=== PATIENT | female | born 1980 | race Caucasian/White ===

== ENCOUNTER 2018-03-23 12:54 | Emergency (ER) | payer MEDICAID ==
[2018-03-23 13:36] VITALS: BP 156/91
--- NOTE | 2018-03-23 13:58 | EDM.PDOC ---
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 Patient states this has been ongoing since December of this year. It had stopped until she had a uterine biopsy March 15. She has been bleeding since then. No other complaints today. She is not lightheaded or dizzy, no palpitations, normal blood pressure. She was told to come have her hemoglobin checked by her truck jumper. Duration: Constant, Intermittent Quality: Reports: Same as Previous Episode Improves with: Reports: None Worsens with: Reports: None Associated Symptoms: Reports: No Other Symptoms - Related Data Allergies Allergy/AdvReac Type Severity Reaction Status Date / Time tramadol Allergy Vomiting Verified 03/23/18 13:14 dust Allergy Facial Uncoded 03/23/18 13:14 Swelling pollen Allergy Facial Uncoded 03/23/18 13:14 Swelling Home Meds: Home Meds Ethinyl Estradiol/Norgestrel [Cryselle 28-Day] 1 tab PO DAILY 03/23/18 [History] Past Medical History - Past Health History Medical/Surgical History: Denies Medical/Surgical History Other Immunologic History: chronic hives - Past Surgical History Other HEENT Surgeries/Procedures: dental surgery 2 yrs ago. Had back teeth and wisdom teeth removed ED ROS GENERAL - Review of Systems Review Of Systems: See Below Constitutional: Reports: No Symptoms HEENT: Reports: No Symptoms Respiratory: Reports: No Symptoms Cardiovascular: Reports: No Symptoms Endocrine: Reports: No Symptoms GI/Abdominal: Reports: No Symptoms : Reports: Other (heavy menses) Musculoskeletal: Reports: No Symptoms Skin: Reports: No Symptoms Neurological: Reports: No Symptoms Psychiatric: Reports: No Symptoms Hematologic/Lymphatic: Reports: No Symptoms Immunologic: Reports: No Symptoms ED EXAM, GENERAL - Physical Exam Exam: See Below Exam Limited By: No Limitations General Appearance: Alert, WD/WN, No Apparent Distress Head: Atraumatic, Normocephalic Neck: Normal Inspection, Supple, Non-Tender, Full Range of Motion Respiratory/Chest: No Respiratory Distress, Lungs Clear, Normal Breath Sounds, No Accessory Muscle Use, Chest Non-Tender Cardiovascular: Normal Peripheral Pulses, Regular Rate, Rhythm, No Edema, No Gallop, No JVD, No Murmur, No Rub GI/Abdominal: Normal Bowel Sounds, Soft, Non-Tender, No Organomegaly, No Distention, No Abnormal Bruit, No Mass (Female) Exam: Normal External Exam, Normal Speculum Exam, Normal Bimanual Exam, Vaginal Bleeding, Other (Anne AWRD present in room). No: Adnexal Mass, Adnexal Tenderness, Cervical Discharge, Cervical Lesions, Uterine Tenderness, Vaginal Tears Extremities: Normal Inspection, Normal Range of Motion, Non-Tender, Normal Capillary Refill, No Pedal Edema Neurological: Alert, Oriented, CN II-XII Intact, Normal Cognition, Normal Gait, Normal Reflexes, No Motor/Sensory Deficits Psychiatric: Normal Affect, Normal Mood Skin Exam: Warm, Dry, Intact, Normal Color, No Rash Course - Vital Signs Last Recorded V/S: Last Vital Signs Temp 36.3 C 03/23/18 13:05 Pulse 99 03/23/18 13:05 Resp 16 03/23/18 13:05 BP 156/91 H 03/23/18 13:05 Pulse Ox 98 03/23/18 13:05 - Orders/Labs/Meds Orders: Active Orders 24 hr Category Date Time Status CULTURE URINE [RM] Stat Lab 03/23/18 13:17 Ordered UA W/MICROSCOPIC [URIN] Stat Lab 03/23/18 13:17 Ordered Labs: Laboratory Tests 03/23/18 03/23/18 03/23/18 Range/Units 13:17 13:20 13:20 WBC 7.3 (4.0-10.0) x10^3/uL RBC 4.10 (4.00-5.50) x10^6/uL Hgb 13.0 (12.0-16.0) g/dL Hct 37.9 (33.0-47.0) % MCV 92.4 (78.0-93.0) fL MCH 31.7 (26.0-32.0) pg MCHC 34.3 (32.0-36.0) g/dL RDW Coeff of Gill 12.3 (10.0-15.0) % Plt Count 300 (130-400) x10^3/uL Neut % (Auto) 62.3 (50.0-80.0) % Lymph % (Auto) 31.6 (25.0-50.0) % [place] % (Auto) 4.1 (2.0-11.0) % Eos % (Auto) 1.7 (0.0-4.0) % Baso % (Auto) 0.3 (0.2-1.2) % PT 9.7 (9.6-11.4) SEC INR 0.9 L (2.0-3.5) Urine Color Dark yellow H (YELLOW) Urine Appearance Cloudy H (CLEAR) Urine pH 6.0 (5.0-8.0) Ur Specific [place] 1.010 Urine Protein Negative (NEGATIVE) mg/dL Urine Glucose (UA) Negative (NEGATIVE) mg/dL Urine Ketones Negative (NEGATIVE) mg/dL Urine Occult Blood Moderate H (NEGATIVE) Urine Nitrite Negative (NEGATIVE) Urine Bilirubin Negative (NEGATIVE) Urine Urobilinogen 0.2 (0.2) EU/dL Ur Leukocyte Esterase Trace H (NEGATIVE) Departure - Departure Time of Disposition: 13:58 Disposition: Home, Self-Care 01 Condition: Good Clinical Impression: Excessive vaginal bleeding - Discharge Information *PRESCRIPTION DRUG MONITORING PROGRAM REVIEWED*: No *COPY OF PRESCRIPTION DRUG MONITORING REPORT IN PATIENT PAVITHRA: No Instructions: Abnormal Uterine Bleeding, [id number] Additional Instructions: Please call your truck jumper to be sure she is alright with the provera prescription. Stay well hydrated. If you develop any dizziness or lightheadedness, please call the emergency room. If you develop any shortness of breath or pain in your lower legs or swelling to the lower legs please come in to the emergency room for evaluation. A blood clot in your leg or lungs is a possible complication of using this medication. Please call if you have any questions or complaints. - Problem List & Annotations (1) Excessive vaginal bleeding SNOMED Code(s): 962301005 Code(s): N92.0 - EXCESSIVE AND FREQUENT MENSTRUATION WITH REGULAR CYCLE Status: Acute Priority: Medium Current Visit: Yes - Problem List Review Problem List Initiated/Reviewed/Updated: Yes - My Orders Last 24 Hours: My Active Orders 03/23/18 13:17 CULTURE URINE [RM] Stat UA W/MICROSCOPIC [URIN] Stat - Assessment/Plan Last 24 Hours: My Active Orders 03/23/18 13:17 CULTURE URINE [RM] Stat UA W/MICROSCOPIC [URIN] Stat Assessment:: excessive vaginal bleeding Plan: Please call your truck jumper to be sure she is alright with the provera prescription. Stay well hydrated. If you develop any dizziness or lightheadedness, please call the emergency room. If you develop any shortness of breath or pain in your lower legs or swelling to the lower legs please come in to the emergency room for evaluation. A blood clot in your leg or lungs is a possible complication of using this medication. Please call if you have any questions or complaints.
== END 2018-03-23 14:05 | disposition home or self-care (01) ==
LOC: VM.ED 12:54
DX: N93.9 Abnormal uterine and vaginal bleeding, unspecified (principal); Z79.899 Other long term (current) drug therapy; Z88.6 Allergy status to analgesic agent; Z91.09 Other allergy status, other than to drugs and biological substances
CPT/HCPCS: 36415; 81001; 85025; 85610; 87086; 99284

== ENCOUNTER 2021-12-22 20:34 | Emergency (ER) | payer MEDICAID ==
[2021-12-22] MEDS ORDERED: Sodium Chloride 0.9% 1,000 ML IV ONE (20:55)
[2021-12-22] MEDS ORDERED: Ondansetron 4 MG/2 ML SDV IVPUSH ONE (20:55)
[2021-12-22 21:14] VITALS: PULSE 103
[2021-12-22 21:20] LABS: CHLORIDE,CL 101 mmol/L (98-107); SODIUM,NA 140 mmol/L (136-145)
[2021-12-22 21:21] LABS: ANION GAP 21.3 mmol/L (5-15); ESTIMATED GFR 111 mL/min (>=60)
[2021-12-22 21:25] VITALS: BP 122/82
[2021-12-22] MEDS ORDERED: Meclizine 25 MG Tab PO ONE (21:45)
[2021-12-22] MEDS ORDERED: Take Home: Ondansetron 4 MG Tab.DIS, 5 Tab Pack PO ONE (21:45)
== END 2021-12-22 22:04 | disposition home or self-care (01) ==
LOC: VM.ED 20:34
DX: R42 Dizziness and giddiness (principal); E11.9 Type 2 diabetes mellitus without complications; Z79.899 Other long term (current) drug therapy; Z91.048 Other nonmedicinal substance allergy status
CPT/HCPCS: 70450; 80053; 82550; 83615; 84484; 85025; 93005; 93010; 96361; 96374; 99284; A9270; J2405; J7030; Q0162

== ENCOUNTER 2022-09-25 16:09 | Emergency (ER) | payer MEDICAID ==
[2022-09-25 16:17] VITALS: BP 126/83; PULSE 118
[2022-09-25] MEDS ORDERED: Take Home: Ondansetron 4 MG Tab.DIS, 5 Tab Pack PO ONE (16:29)
== END 2022-09-25 16:37 | disposition home or self-care (01) ==
LOC: VM.ED 16:09
DX: A08.4 Viral intestinal infection, unspecified (principal); E11.9 Type 2 diabetes mellitus without complications; Z88.5 Allergy status to narcotic agent; Z79.84 Long term (current) use of oral hypoglycemic drugs
CPT/HCPCS: 99283